=== PATIENT | female | born 1960 | race Caucasian/White ===

== ENCOUNTER → 2018-11-05 10:02 | Outpatient (CLI) | payer OTHER, BC, SELFPAY ==
[2018-11-05 10:42] LABS: Absolute Lymphocyte Count 2.24 X10^3/ul (0.83-4.51); Absolute Neutrophil Count 3.2 X10^3/uL (2.0-7.7); Basophil# 0.02 X10^3/uL; Basophil% 0.3 % (0-1); Eosinophil# 0.07 X10^3/uL; Eosinophils% 1.2 % (0-5); Hematocrit 41.4 % (37-47); Hemoglobin 13.8 g/dl (12.0-15.0); Lymphocyte # 2.24 X10^3/ul (4.0); Lymphocyte % 36.8 % (19-41); Mean Corp Hgb Conc 33.3 g/gl (32-36); Mean Corpuscular Hgb 32.4 pg (27.0-32.0); Mean Corpuscular Volume 97.2 fL (81-99); Mean Platelet Vol. 9.3 fl (6.2-12.0); Monocyte# 0.52 X10^3/uL; Monocyte% 8.6 % (0-10); Neutrophil # 3.22 X10^3/uL (2.7-7.7); Neutrophil % 52.9 % (47-70); POSITIVE COUNT NO; POSITIVE DIFFERENTIAL NO; POSITIVE MORPHOLOGY NO; Platelet Count 324 K/mm3 (150-450); RBC Distribution Width CV 12.7 % (11.6-14.6); RBC Distribution Width SD 44.4 fl (35.1-43.9); Red Blood Count 4.26 M/mm3 (4.2-5.4); White Blood Count 6.1 K/mm3 (4.4-11.0)
[2018-11-05 11:22] LABS: Albumin, Serum 4.2 g/dL (3.2-5.0); BUN 18 mg/dL (7-18); BUN/Creat Ratio 20.1 RATIO (10-20); EST Glomerular Filtration Rate 69 mL/min (>60); Est Glom Filt Rate - Afr Amer 84 mL/min (>60); Globulin 3.5 g/dL (2.2-4.2); Glucose 101 mg/dL (74-106); Protein, Total 7.7 g/dL (6.4-8.2)
[2018-11-05 11:23] LABS: ALB/GLOB Ratio 1.2 RATIO (0.9-2.4); AST(SGOT) 17 U/L (15-37); Alanine Aminotransfer ALT/SGPT 28 U/L (13-56); Alkaline Phosphatase 63 U/L (45-117); Anion Gap 8 (5-15); Calcium,Total 9.2 mg/dL (8.5-10.1); Chloride 105 mmol/L (98-107); Cholesterol 219 mg/dL (200); High Density Lipoprotein 44 mg/dL; Potassium 4.1 mmol/L (3.5-5.1); Sodium Level 136 mmol/L (136-145); Triglycerides 190 mg/dL; Very Low Density Lipoprotein 38 mg/dL (5-40)
--- OUTSIDE RECORDS SUMMARY | 2019-01-09 17:37 | XMS RPT_ITS ---
:1960 Author Organization OHIP Care Team Providers Name Role Phone JADA JOHNSON Attending Unavailable JADA JOHNSON Referring Unavailable JADA JOHNSON Primary Care Unavailable Scotia, Samantha March Admitting Unavailable Scotia, Samantha March Attending Unavailable Scotia, Samantha March Primary Care Unavailable Scotia, Samantha March Admitting Unavailable [place], Samantha March Attending Unavailable Scotia, Samantha March Primary Care Unavailable Carmen Salmeron Attending Unavailable [place], Samantha March Primary Care Unavailable Carmen Salmeron Admitting Unavailable [place], Samantha March Attending Unavailable Scotia, Samantha March Primary Care Unavailable Scotia, Asmantha March Admitting Unavailable [place], Samantha March Admitting Unavailable [place], Samantha March Attending Unavailable [place], Samantha March Primary Care Unavailable Scotia, Samantha March Primary Care Unavailable Nikhil Palacios Attending Unavailable Nikhil Palacios Admitting Unavailable Scotia, Samantha March Attending Unavailable Scotia, Samantha March Primary Care Unavailable PROBLEMS PROBLEMS No Problem Records FoundPROCEDURES PROCEDURES No Procedure Records FoundRESULTS RESULTS CBC W/DIFF, AUTOMATED Collected: 11/05/2018 Status: F Source: [place] 10:21 AM [facility] REPOSITORY TYPE CODE TESTS RESULT OUT OF RANGE REFERENCE UNITS LAB L100.1000 4.4-11.0 K/mm3 Normal WBC 6.1 LAB L100.1200 4.2-5.4 M/mm3 Normal RBC 4.26 LAB L100.1300 12.0-15.0 g/dl Normal HGB 13.8 LAB L100.1400 37-47 % Normal HCT 41.4 LAB L100.1500 81-99 fL Normal MCV 97.2 LAB L100.1600 27.0-32.0 pg High MCH 32.4 LAB L100.1700 32-36 g/gl Normal MCHC 33.3 LAB L100.1810 11.6-14.6 % Normal RDW CV 12.7 LAB L100.1820 35.1-43.9 fl High RDW SD 44.4 LAB L100.1900 150-450 K/mm3 Normal PLT 324 LAB L100.2000 6.2-12.0 fl Normal MPV 9.3 LAB L100.2100 47-70 % Normal NEUT% 52.9 LAB L100.2200 19-41 % Normal LY% 36.8 LAB L100.2300 0-10 % Normal MONO% 8.6 LAB L100.2400 0-5 % Normal EO% 1.2 LAB L100.2500 0-1 % Normal BASO% 0.3 LAB L100.2550 0.0-0.9 % Normal IM GRAN % 0.200 Result Comment: IG% - Immature Granulocytes (promyelocytes, myelocytes and metamyelocytes) > 1% indicates that a LEFT SHIFT is Present. LAB L100.2620 2.0-7.7 X10 3/uL Normal Absolute Neut 3.2 LAB L100.2720 0.83-4.51 X10 3/ul Normal Absolute Lymph 2.24 Performed By: #### L100.0100 #### [facility] [address] [place], [address] COMPREHENSIVE METABOLIC Collected: 11/05/2018 Status: F Source: [facility] 10:21 AM [facility] REPOSITORY TYPE CODE TESTS RESULT OUT OF RANGE REFERENCE UNITS LAB L501.0100 74-106 mg/dL Normal GLU 101 Result Comment: Fasting Glucose result from 100 to 125 mg/dL suggests IMPAIRED HOMEOSTASIS per A.D.A. criteria. Please note revised GLUCOSE reference range effective 2017. LAB L501.1000 7-18 mg/dL Normal BUN 18 LAB L501.1100 0.55-1.02 mg/dL Normal CREAT,SERUM 0.90 Result Comment: The validity of the calculated GFR AND GFRAA in patients over 70 years has not been determined. Clinical correlation is essential. LAB L501.1110 >60 mL/min Normal EST GFR 69 Result Comment: Non- GFR Calc LAB L501.1115 >60 mL/min Normal EST GFR - AA 84 Result Comment: GFR Calc LAB L501.1300 10-20 RATIO High BUN/CRE 20.1 LAB L501.1500 6.4-8.2 g/dL T Normal PROT 7.7 LAB L501.1800 3.2-5.0 g/dL Normal ALB 4.2 LAB L501.1950 2.2-4.2 g/dL Normal GLOB 3.5 LAB L501.2000 0.9-2.4 RATIO Normal A/G 1.2 LAB L501.2200 8.5-10.1 mg/dL CA Normal 9.2 LAB L501.4100 15-37 U/L Normal AST 17 LAB L501.4305 45-117 U/L Normal ALK P 63 LAB L501.4405 13-56 U/L Normal ALT 28 LAB L501.4600 0.20-1.00 mg/dL T Normal BILI 0.40 LAB L501.5300 136-145 mmol/L NA Normal 136 LAB L501.5600 3.5-5.1 mmol/L K Normal 4.1 LAB L501.5900 98-107 mmol/L CL Normal 105 LAB L501.6100 21.0-32.0 mmol/L Normal CO2 23.0 LAB L501.6200 5-15 Normal GAP 8 Performed By: #### L500.4050, L500.4100 #### [facility] [address] [place], [place], [address] LIPID PROFILE Collected: 11/05/2018 Status: F Source: [place] 10:21 AM [facility] REPOSITORY TYPE CODE TESTS RESULT OUT OF RANGE REFERENCE UNITS LAB L501.4900 200 mg/dL High CHOL 219 Result Comment: <200 mg/dL Desirable 200-240 mg/dL Borderline >240 mg/dL High Risk LAB L501.5000 mg/dL Normal TRIG 190 Result Comment: The drugs N-Acetylcysteine and Metamizole may falsely depress this assay. Serum Triglycerides Reference Interval Normal <150 mg/dL Borderline high 150 - 199 mg/dL High 200 - 499 mg/dL Very High > or = 500 mg/dL LAB L501.6400 mg/dL Normal HDL 44 Result Comment: The drugs N-Acetylcysteine and Metamizole may falsely depress this assay. Reference Range HDL <40 mg/dL Low HDL Cholesterol HDL >or= 60 mg/dL High HDL Cholesterol LAB L501.6500 0-130 mg/dL High LDL 137 LAB L501.6600 5-40 mg/dL Normal VLDL 38 Performed By: #### L500.4050, L500.4100 #### [facility] [address] [place], [address] CT CORONARY ARTERY Observed: 05/12/2018 Status: F Source: RELIGIOUS CALCIUM SCORE 3:00 PM [facility] REPOSITORY Exam Date/Time: 05/12/2018 15:16 EDT Reason for Exam: SCREENING FOR HEART DISEASE HIGH BLOOD PRESSURE HYPLIPIDEMIA;Screening Report STUDY: CT Coronary Artery Calcium Score; 05/12/2018 3:16 pm INDICATION: Screening. COMPARISON: None. ACCESSION NUMBER(S): [id number] ORDERING CLINICIAN: Samantha Adkins TECHNIQUE: Using prospective ECG gating, CT scan of the coronary arteries was performed without intravenous contrast. Coronary calcium scoring was performed according to the method of Agatston. FINDINGS: The score and distribution of calcium in the coronary arteries is as follows: LM 0 LAD 0 LCx 0 RCA 0 Total 0 The visualized mid/lower ascending thoracic aorta measures 3 cm in diameter. The heart is normal in size. No pericardial effusion is present. No gross evidence of mediastinal or hilar lymphadenopathy or masses is identified. However, there are few enlarged densely calcified subcarinal and right hilar lymph nodes seen, likely representing sequelae of remote granulomatous process. The visualized segments of the lungs are normally expanded. There are few adjacent calcified granulomas seen within lateral right middle lobe measuring up to 8 mm on axial image 38 of 60. The visualized subdiaphragmatic structures appear intact. IMPRESSION: 1. Coronary artery calcium score of 0*. 2. Sequelae of remote granulomatous process within mediastinum, right hilum and right middle lobe lung. *Coronary Artery Calcium Gated and Nongated Agatston score Score Risk 0 Very low Exam Date/Time: 05/12/2018 15:16 EDT Report 1-99 Mildly increased 100-299 Moderately increased >300 Moderate to severely increased Areli et al. JCCT 2016 (http://dx.doi.org/10.1016/j.jcct.2016.11.003) MULLIGAN 10-Year CHD Risk with Coronary Artery Calcification can be calcuate using link below [email or web address] Bella et al. JACC 2014 (http://dx.doi.org/10.1016/j.j acc.2015.08.035) FINAL REPORT Dictated: 05/12/2018 4:08 pm Aleksey Grijalva MD Signed (Electronic Signature): 05/12/2018 4:08 pm Signed by: Aleksey Grijalva MD Technologist: RIO SMITH Collected: 12/18/2017 Status: F Source: RELIGIOUS 8:21 [facility] REPOSITORY TYPE CODE TESTS RESULT OUT OF RANGE REFERENCE UNITS LAB 53360341(L 70-99 mg/dL OINC) High Glucose Lvl 107 LAB 29700229(L 8.4-10.2 mg/dL OINC) Calcium Normal Lvl 9.8 LAB 95558473(L 136-145 mEq/L OINC) Sodium Normal Lvl 139 LAB 60631992(L 3.5-5.1 mEq/L OINC) Normal Potassium Lvl 3.8 LAB 75467459(L 98-107 mEq/L OINC) Chloride Normal 104 LAB 08160315(L 24.0-30.0 mEq/L OINC) CO2 Normal 28.9 LAB 98653723(L 7-18 mg/dL OINC) High BUN 20 LAB 2478970(LO 0.6-1.3 mg/dL INC) Normal Creatinine 0.9 LAB 44099855(L 5.4-30.0 ratio OINC) Normal BUN/Creat Ratio 22.2 Performed By: #### [id number] #### [facility] [place] [address] EGFR Collected: 12/18/2017 Status: F Source: RELIGIOUS 8:21 [facility] REPOSITORY Order Comment: Order added by Discern Expert. TYPE CODE TESTS RESULT OUT OF RANGE REFERENCE UNITS LAB 05719745(LO mL/min/1.73 INC) m2 Normal eGFR >60 LAB 73491763(LO mL/min/1.73 INC) m2 Normal eGFR AA >60 Performed By: #### [id number] #### [facility] [place] [address] LIPID PROFILE Collected: 12/18/2017 Status: F Source: RELIGIOUS 8:21 AM [facility] REPOSITORY TYPE CODE TESTS RESULT OUT OF RANGE REFERENCE UNITS LAB 93379396(LO 50-200 mg/dL INC) Normal Chol 200 Result Comment: TOTAL CHOLEESTEROL: <200 NORMAL 200 - 239 BORDERLINE HIGH >240 HIGH LAB 29999906(LOINC) >=41 mg/dL Normal HDL 44 LAB 02780037(LOINC) 0-130 mg/dL High LDL 137 Result Comment: <100 OPTIMAL 100-129 NEAR / ABOVE OPTIMAL 130-159 BORDERLINE HIGH 160-189 HIGH >190 VERY HIGH CALC LDL NOT VALID WHEN TRIGLYCERIDE IS >400 MG/DL LAB 05641622(LOINC) 35-150 mg/dL Normal Trig 93 Result Comment: <150 NORMAL 150-199 BORDERLINE HIGH 200-499 HIGH >500 VERY HIGH LAB 30265237(LOINC) Normal VLDL 19 Performed By: #### [id number] #### [facility] [address] [place] [address] FERRITIN Collected: 12/18/2017 Status: F Source: RELIGIOUS 8:21 AM [facility] REPOSITORY TYPE CODE TESTS RESULT OUT OF RANGE REFERENCE UNITS LAB 33440405(L 11.0-306.8 ng/mL OINC) Normal Ferritin Lvl 28.2 Performed By: #### [id number] #### [facility] [address] [place] [address] HGBA1C Collected: 12/18/2017 Status: F Source: RELIGIOUS 8:21 AM [facility] REPOSITORY TYPE CODE TESTS RESULT OUT OF RANGE REFERENCE UNITS LAB 731170178( 4.0-6.3 % LOINC) Normal Hemoglobin A1c 5.7 Performed By: #### [id number] #### [facility] Chemistry Manual Subsection [address] [place] [address] ALLERGIES ALLERGIES DATE TYPE / CODE NAME / CODE REACTION SEVERITY SOURCE Drug/737193 erythromycin STOMACH Jew 003(SNOMED PROBLEMS [facility]) System Repository Drug/643276 Augmentin Vomiting Jew 003(SNOMED [facility]) System Repository Drug/592043 Novocain Both parents Jew 003(SNOMED allergic to [facility] CT) novacaine. Was System told not to Repository use this. ENCOUNTERS ENCOUNTERS ADMIT/DISCHARGE ACCOUNT NUMBER ADMITTING ENCOUNTER LOCATION SOURCE CLASS 11/05/2018 [id number] Ambulatory General acute hospital ding:LAB Repository 09/27/2018 [id number] [facility] ding:[place] Repository nt Medic 09/27/2018/09/27/[id number] ding:[place] Repository nt MedicRoom: Room 1 08/05/2018/08/05/20 [id number] [facility] 18 Nikhil Sellers g:QCareRoom: Regional Room 2 Health System Repository 05/12/2018/05/12/[id number] ding:SH.CT Health System Repository 05/12/[id number] Repository 05/03/2018/05/03/[id number] ding:[place] Repository nt MedicRoom: Room 2 03/25/2018/03/25/20 [id number] Carmen Salmeron Ambulatory [address] ding:[place] Repository nt MedicRoom: Room 2 12/18/2017/12/19/[id number] ding:SH.Lab Health System Repository PAYERS PAYERS ENCOUNTER GUARANTOR PAYER SUBSCRIBER SOURCE 11/05/2018 SHIRA SEARS182 RICH Insurance:MEDICAL RICHERTDOB: [address] [id number] [address]Bjv: (419) Number: Repository [phone] () [id number] Date:[id number], [place] [address]CA: 11/05/2018 Secondary JENNIFER L [place] Insurance:ANTHEMPolic RICHERTDOB: Community y Number: [id number] Hospital [id number] Repository Date:0754-24-12TQ [address] [place] [address]WH: 11/05/2018 Tertiary NOT GIVENUNK Arturo Insurance:SELF PAY [facility] Number: Effective Repository Date:2018-11-05 09/27/2018 SHIRA A Primary SHIRA Irving DavenportJew RICHERTDOB: Insurance:1500 RICHERTDOB: [facility] MEDICAL MUTUALPolicy [id number] System [facility] Number: Effective [facility] Repository [place], [place] Date:2018-[place] [address]Fay: [id number] [id number]: Name:[id number] O () [address] [place] [address] ()Tel: [phone]: [phone] 09/27/2018 Secondary JENNIFER L RICHERT Jew Insurance:1500 [facility] Number: [id number] Repository Date:[place] [id number] [id number]: Name:[id number] O [address] [place] [address] [place] ()Tel: [phone]: [phone] 09/27/2018 SHIRA A Primary SHIRA A Jew RICHERTDOB: Insurance:1500 RICHERTDOB: [facility] [id number] Number: Effective [facility] Repository [place], [place] Date:2018-05-03 [place] [address]Phz: [id number] [address]Vbw: Name:CD:[id number] O () [address] [place] [address] (HP)Tel: [phone]: [phone] 09/27/2018 Secondary JENNIFER L RICHERT Jew Insurance:1500 IIDOB: [facility] ANTHEMPolicy Number: [id number] [address] Repository Date:2018-05-03[place], [place] [id number] [id number]: Name:CD:[id number] O [address] ()Tel: [phone]: ([phone] 08/05/2018 SHIRA A Primary SHIRA A Jew RICHERTDOB: Insurance:1500 RICHERTDOB: [facility] MEDICAL MUTUALPolicy [id number] Number: Effective [address] Repository [address] [place] [address] Date:2018-08-05[place] [address]Thp: [id number] [id number]: Name:CD:[id number] O () [address] [place] [address] ()Tel: [phone]: [phone] 08/05/2018 Secondary JENNIFER L RICHERT Jew Insurance:1500 IIDOB: [facility] ANTHEMPolicy Number: [id number] Repository Date:2018-08-05[place], [place] [id number] [id number]: Name:CD:[id number] O [address] ()Tel: [phone]: [phone] 05/12/2018 SHIRA A Primary SHIRA A Jew RICHERTDOB: Insurance:Medical [facility] Number: [id number] Effective [facility] Repository [place], [place] Date:2018-05-03 - [place], [place] [address]Zjp: [id number] [id number]: Name:Medical [place] () [address], [place] ()Tel: [phone]: (WP) [phone] 05/12/2018 Secondary JENNIFER Johnson Insurance:ANTHEMPolic IIDOB: [facility] y Number: Effective [id number] System Date:2018-05-03 - [facility] Repository [id number] [place], [place] Name:[facility] [id number]: [id number], [place] [address]KR: [phone] (WP) 05/12/2018 [facility] RICHERTDOB: Insurance:Medical RICHERTDOB: [facility] [id number] Number: [facility] [place], [place] [id number] [address] [place] [address] [id number]: Date:Plan Name:Health [id number]: () () 05/12/2018 Secondary JENNIFER RICHERTDOB: University Insurance:AnthemPolic [id number] Hospitals y Number: [facility] Repository [id number] [address] [place] [address] Date:Plan Name:Health [id number] 05/12/2018 Tertiary [facility] Insurance:Medical RICHERTDOB: [facility] [id number] Repository Number: [facility] [id number] [address] [place] [address], [place] Date:Plan Name:Health [id number]: () 05/03/2018 SHIRA A Primary SHIRA Johnson RICHERTDOB: Insurance:1500 RICHERTDOB: [facility] MEDICAL MUTUALPolicy [id number] System [facility] Number: Effective [address] Repository [place], [place] Date:2017-11-02[place], [place] [address]Jmi: [id number] [id number]: Name:CD:[id number] O () [address] [place] [address] ()Tel: [phone]: [phone] 05/03/2018 Secondary JENNIFER Johnson Insurance:1500 IIDOB: [facility] ANTHEMPolicy Number: [id number] System Effective [facility] Repository Date:2017-[place]-02[place], [place] [id number] [id number]: Name:[id number] O [address] [place] [address] ()Tel: [phone]: [phone] 03/25/2018 SHIRA A Primary SHIRA Johnson RICHERTDOB: Insurance:1500 RICHERTDOB: [facility] MEDICAL MUTUALPolicy [id number] System [facility] Number: Effective [facility] Repository [place], [place] Date:2018-03-25[place], [place] [address]Lgz: [id number] [address]Cxv: Name:CD:[id number] O () [address] [place] [address] ()Tel: [phone]: [phone] 12/18/2017 SHIRA A Primary SHIRA Johnson RICHERTDOB: Insurance:Medical RICHERTDOB: [facility] MutualPolicy Number: [id number] System [facility] Effective [facility] Repository [address] [place] [address] Date:2017-12-18 [place] [address]Kdl: [id number] [phone]: Name:Medical MutualPO () [address], [place] ()Tel: [phone]: [phone] 12/18/2017 Secondary JENNIFER SEARS Jew [facility] IID[facility]: [facility] y Number: Effective [id number] System Date:2017-12-18 - [facility] Repository [id number] [address] [place] [address] Name:Blue CrossPO [id number]: [id number], [place] [address]WG: [phone] (WP)
== END ==
PROVIDERS: Family Provider Family Medicine; PCP Family Medicine; Referring Provider Family Medicine; Visit Provider Family Medicine
DX: I10 Essential (primary) hypertension (principal); E78.2 Mixed hyperlipidemia; R53.83 Other fatigue
CPT/HCPCS: 36415; 80053; 80061; 85025

== ENCOUNTER → 2019-09-09 12:47 | Outpatient (CLI) | payer OTHER, BC, SELFPAY ==
[2019-09-09 14:06] LABS: ALB/GLOB Ratio 1.3 RATIO (0.9-2.4); AST(SGOT) 16 U/L (15-37); Alanine Aminotransfer ALT/SGPT 42 U/L (13-56); Albumin, Serum 4.4 g/dL (3.2-5.0); Alkaline Phosphatase 64 U/L (45-117); BUN 19 mg/dL (7-18); BUN/Creat Ratio 17.9 RATIO (10-20); Calcium,Total 9.1 mg/dL (8.5-10.1); Creatinine, Serum 1.06 mg/dL (0.55-1.02); EST Glomerular Filtration Rate 57 mL/min (>60); Est Glom Filt Rate - Afr Amer 69 mL/min (>60); Globulin 3.5 g/dL (2.2-4.2); Glucose 109 mg/dL (74-106); Protein, Total 7.9 g/dL (6.4-8.2)
[2019-09-09 14:07] LABS: Anion Gap 9 (5-15); Chloride 103 mmol/L (98-107); Cholesterol 256 mg/dL (200); High Density Lipoprotein 44 mg/dL; Potassium 4.1 mmol/L (3.5-5.1); Sodium Level 137 mmol/L (136-145); Thyroid Stim Hormone (TSH) 0.58 uIU/mL (0.358-3.74); Triglycerides 324 mg/dL; Very Low Density Lipoprotein 65 mg/dL (5-40)
== END ==
PROVIDERS: Family Provider Family Medicine; PCP Family Medicine; Referring Provider Nurse Practitioner Family; Visit Provider Nurse Practitioner Family
DX: I10 Essential (primary) hypertension (principal); E78.2 Mixed hyperlipidemia; R53.83 Other fatigue
CPT/HCPCS: 36415; 80053; 80061; 84443

== ENCOUNTER → 2021-03-21 11:27 | Outpatient (CLI) | payer OTHER, SELFPAY ==
[2021-03-21 12:05] LABS: Hemoglobin A1c 6.3 % (3.8-5.6)
[2021-03-21 13:00] LABS: ALB/GLOB Ratio 1.2 RATIO (0.9-2.4); AST(SGOT) 19 U/L (15-37); Alanine Aminotransfer ALT/SGPT 26 U/L (13-56); Albumin, Serum 4.3 g/dL (3.2-5.0); Alkaline Phosphatase 82 U/L (45-117); Anion Gap 8 (5-15); BUN 16 mg/dL (7-18); BUN/Creat Ratio 15.4 RATIO (10-20); Calcium,Total 9.6 mg/dL (8.5-10.1); Chloride 103 mmol/L (98-107); Cholesterol 225 mg/dL (200); Creatinine, Serum 1.04 mg/dL (0.55-1.02); EST Glomerular Filtration Rate 58 mL/min (>60); Est Glom Filt Rate - Afr Amer 70 mL/min (>60); Globulin 3.6 g/dL (2.2-4.2); Glucose 110 mg/dL (74-106); High Density Lipoprotein 46 mg/dL; Potassium 4.2 mmol/L (3.5-5.1); Protein, Total 7.9 g/dL (6.4-8.2); Sodium Level 137 mmol/L (136-145); Thyroid Stim Hormone (TSH) 1.25 uIU/mL (0.358-3.74); Triglycerides 144 mg/dL; Very Low Density Lipoprotein 29 mg/dL (5-40)
== END ==
PROVIDERS: PCP Nurse Practitioner Family; Referring Provider Nurse Practitioner Family; Visit Provider Nurse Practitioner Family
DX: I10 Essential (primary) hypertension (principal); E78.5 Hyperlipidemia, unspecified; R73.09 Other abnormal glucose; R79.89 Other specified abnormal findings of blood chemistry
CPT/HCPCS: 36415; 80053; 80061; 83036; 84443

== ENCOUNTER 2021-11-25 11:32 | Outpatient (CLI) | payer BC, SELFPAY ==
[2021-11-25 14:03] LABS: Hemoglobin A1c 6.4 % (3.8-5.6)
[2021-11-25 14:29] LABS: ALB/GLOB Ratio 1.1 RATIO (0.9-2.4); AST(SGOT) 22 U/L (15-37); Alanine Aminotransfer ALT/SGPT 34 U/L (13-56); Albumin, Serum 4.2 g/dL (3.2-5.0); Alkaline Phosphatase 70 U/L (45-117); Anion Gap 6 (5-15); BUN 19 mg/dL (7-18); BUN/Creat Ratio 17.9 RATIO (10-20); Calcium,Total 9.4 mg/dL (8.5-10.1); Chloride 106 mmol/L (98-107); Cholesterol 239 mg/dL (200); Creatinine, Serum 1.06 mg/dL (0.55-1.02); EST Glomerular Filtration Rate 56 mL/min (>60); Est Glom Filt Rate - Afr Amer 68 mL/min (>60); Globulin 3.7 g/dL (2.2-4.2); Glucose 112 mg/dL (74-106); High Density Lipoprotein 36 mg/dL; Potassium 4.6 mmol/L (3.5-5.1); Protein, Total 7.9 g/dL (6.4-8.2); Sodium Level 136 mmol/L (136-145); Triglycerides 254 mg/dL; Very Low Density Lipoprotein 51 mg/dL (5-40)
== END 2021-11-25 23:59 | disposition home or self-care (01) ==
LOC: LAB 11:34
PROVIDERS: PCP Nurse Practitioner Family; Referring Provider Nurse Practitioner Family; Visit Provider Nurse Practitioner Family
DX: E78.5 Hyperlipidemia, unspecified (principal); R73.03 Prediabetes
CPT/HCPCS: 36415; 80053; 80061; 83036

== ENCOUNTER → 2022-06-12 | Outpatient (CLI) | payer BC, SELFPAY ==
[2022-06-12 10:03] LABS: Absolute Lymphocyte Count 2.87 X10^3/uL (0.83-4.51); Absolute Neutrophil Count 4.4 X10^3/uL (2.0-7.7); Basophil# 0.05 X10^3/uL; Basophil% 0.6 % (0-1); Eosinophil# 0.06 X10^3/uL; Eosinophils% 0.7 % (0-5); Hematocrit 40.6 % (37-47); Hemoglobin 13.8 g/dL (12.0-15.0); Lymphocyte # 2.87 X10^3/ul (0.83-4.51); Lymphocyte % 35.5 % (19-41); Mean Corpuscular Hgb 32.5 pg (27.0-32.0); Mean Corpuscular Volume 95.8 fL (81-99); Mean Platelet Vol. 9.2 fl (6.2-12.0); Monocyte# 0.69 X10^3/uL; Monocyte% 8.5 % (0-10); NRBC Flagged by Analyzer 0 % (0-5); Neutrophil # 4.38 X10^3/uL (2.7-7.7); Neutrophil % 54.3 % (47-70); Platelet Count 352 K/mm3 (150-450); RBC Distribution Width SD 46.3 fl (35.1-43.9); Red Blood Count 4.24 M/mm3 (4.2-5.4); White Blood Count 8.1 K/mm3 (4.4-11.0)
[2022-06-12 10:34] LABS: ALB/GLOB Ratio 1.1 RATIO (0.9-2.4); AST(SGOT) 18 U/L (15-37); Alanine Aminotransfer ALT/SGPT 36 U/L (13-56); Albumin, Serum 3.9 g/dL (3.2-5.0); Alkaline Phosphatase 62 U/L (45-117); Anion Gap 6 (5-15); BUN 22 mg/dL (7-18); BUN/Creat Ratio 22.2 RATIO (10-20); Calcium,Total 9.3 mg/dL (8.5-10.1); Chloride 105 mmol/L (98-107); Cholesterol 173 mg/dL (200); Creatinine, Serum 0.99 mg/dL (0.55-1.02); EST Glomerular Filtration Rate 61 mL/min (>60); Est Glom Filt Rate - Afr Amer 73 mL/min (>60); Globulin 3.4 g/dL (2.2-4.2); Glucose 112 mg/dL (74-106); High Density Lipoprotein 48 mg/dL; Potassium 4.2 mmol/L (3.5-5.1); Protein, Total 7.3 g/dL (6.4-8.2); Sodium Level 137 mmol/L (136-145); Triglycerides 134 mg/dL; Very Low Density Lipoprotein 27 mg/dL (5-40)
[2022-06-12 10:37] LABS: Hemoglobin A1c 6.3 % (3.8-5.6)
== END | disposition home or self-care (01) ==
PROVIDERS: Referring Provider Nurse Practitioner Family; Visit Provider Nurse Practitioner Family
DX: I10 Essential (primary) hypertension (principal); E78.5 Hyperlipidemia, unspecified; R73.03 Prediabetes
CPT/HCPCS: 36415; 80053; 80061; 83036; 85025

== ENCOUNTER → 2023-01-01 | Outpatient (CLI) | payer BC, SELFPAY ==
[2023-01-01 10:37] LABS: Absolute Lymphocyte Count 2.35 X10^3/uL (0.83-4.51); Absolute Neutrophil Count 3.5 X10^3/uL (2.0-7.7); Basophil# 0.05 X10^3/uL; Basophil% 0.7 % (0-1); Hematocrit 41.3 % (37-47); Hemoglobin 13.7 g/dL (12.0-15.0); Lymphocyte # 2.35 X10^3/ul (0.83-4.51); Lymphocyte % 35.2 % (19-41); Mean Corp Hgb Conc 33.2 g/dL (32-36); Mean Corpuscular Volume 96.5 fL (81-99); Mean Platelet Vol. 9.5 fl (6.2-12.0); Monocyte# 0.52 X10^3/uL; Monocyte% 7.8 % (0-10); NRBC Flagged by Analyzer 0 % (0-5); Neutrophil # 3.54 X10^3/uL (2.7-7.7); Platelet Count 350 K/mm3 (150-450); RBC Distribution Width CV 12.9 % (11.6-14.6); RBC Distribution Width SD 46.2 fl (35.1-43.9); Red Blood Count 4.28 M/mm3 (4.2-5.4); White Blood Count 6.7 K/mm3 (4.4-11.0)
[2023-01-01 11:04] LABS: ALB/GLOB Ratio 1.2 RATIO (0.9-2.4); AST(SGOT) 16 U/L (15-37); Alanine Aminotransfer ALT/SGPT 31 U/L (13-56); Albumin, Serum 4.1 g/dL (3.2-5.0); Alkaline Phosphatase 65 U/L (45-117); Anion Gap 7 (5-15); BUN 14 mg/dL (7-18); BUN/Creat Ratio 14.2 RATIO (10-20); Calcium,Total 9.4 mg/dL (8.5-10.1); Chloride 107 mmol/L (98-107); Cholesterol 138 mg/dL (200); Creatinine, Serum 0.99 mg/dL (0.55-1.02); EST Glomerular Filtration Rate 61 mL/min (>60); Est Glom Filt Rate - Afr Amer 74 mL/min (>60); Ferritin 29 ng/mL (8-252); Globulin 3.4 g/dL (2.2-4.2); Glucose 124 mg/dL (74-106); High Density Lipoprotein 40 mg/dL; Iron 115 ug/dL (50-170); Iron Binding Capacity,Total 362 ug/dL (250-450); PERCENT IRON SATURATION 31.8 % (15.0-55.0); Potassium 3.9 mmol/L (3.5-5.1); Protein, Total 7.5 g/dL (6.4-8.2); Sodium Level 140 mmol/L (136-145); Triglycerides 138 mg/dL; Very Low Density Lipoprotein 28 mg/dL (5-40)
[2023-01-01 11:06] LABS: Vitamin B12 323 pg/mL (211-911)
[2023-01-01 11:11] LABS: Hemoglobin A1c 6.2 % (3.8-5.6)
== END | disposition home or self-care (01) ==
LOC: LAB 10:01
PROVIDERS: PCP Family Medicine; Referring Provider Nurse Practitioner Family; Visit Provider Nurse Practitioner Family
DX: I10 Essential (primary) hypertension (principal); E78.5 Hyperlipidemia, unspecified; R73.03 Prediabetes
CPT/HCPCS: 36415; 80053; 80061; 82607; 82728; 83036; 83540; 83550; 85025

== ENCOUNTER → 2024-04-14 | Outpatient (CLI) | payer BC, SELFPAY ==
[2024-04-14 09:52] LABS: Absolute Lymphocyte Count 2.47 X10^3/uL (0.83-4.51); Absolute Neutrophil Count 4.3 X10^3/uL (2.0-7.7); Basophil# 0.04 X10^3/uL; Basophil% 0.5 % (0-1); Eosinophil# 0.14 X10^3/uL; Eosinophils% 1.9 % (0-5); Hematocrit 39.3 % (37-47); Hemoglobin 12.9 g/dL (12.0-15.0); Lymphocyte # 2.47 X10^3/ul (0.83-4.51); Lymphocyte % 32.9 % (19-41); Mean Corp Hgb Conc 32.8 g/dL (32-36); Mean Corpuscular Hgb 31.2 pg (27.0-32.0); Mean Corpuscular Volume 95.2 fL (81-99); Mean Platelet Vol. 9.2 fl (6.2-12.0); Monocyte# 0.58 X10^3/uL; Monocyte% 7.7 % (0-10); NRBC Flagged by Analyzer 0 % (0-5); Neutrophil # 4.26 X10^3/uL (2.7-7.7); Neutrophil % 56.7 % (47-70); Platelet Count 326 K/mm3 (150-450); RBC Distribution Width CV 12.9 % (11.6-14.6); RBC Distribution Width SD 44.2 fl (35.1-43.9); Red Blood Count 4.13 M/mm3 (4.2-5.4); White Blood Count 7.5 K/mm3 (4.4-11.0)
[2024-04-14 10:33] LABS: Vitamin B12 249 pg/mL (211-911); Vitamin D,25 Hydroxy 26.3 ng/mL
[2024-04-14 10:38] LABS: ALB/GLOB Ratio 1.2 RATIO (0.9-2.4); AST(SGOT) 17 U/L (15-37); Alanine Aminotransfer ALT/SGPT 35 U/L (13-56); Albumin, Serum 3.9 g/dL (3.2-5.0); Alkaline Phosphatase 81 U/L (45-117); Anion Gap 6 (5-15); BUN 17 mg/dL (7-18); Calcium,Total 9.4 mg/dL (8.5-10.1); Chloride 108 mmol/L (98-107); Cholesterol 137 mg/dL (200); EST Glomerular Filtration Rate 60 mL/min (>60); Est Glom Filt Rate - Afr Amer 72 mL/min (>60); Globulin 3.3 g/dL (2.2-4.2); Glucose 122 mg/dL (74-106); High Density Lipoprotein 42 mg/dL; Potassium 4.5 mmol/L (3.5-5.1); Protein, Total 7.2 g/dL (6.4-8.2); Sodium Level 140 mmol/L (136-145); Triglycerides 105 mg/dL; Very Low Density Lipoprotein 21 mg/dL (5-40)
[2024-04-14 10:52] LABS: Hemoglobin A1c 6.4 % (3.8-5.6)
== END | disposition home or self-care (01) ==
LOC: LAB 09:34
PROVIDERS: PCP Family Medicine; Visit Provider Nurse Practitioner Family
DX: Z00.00 Encounter for general adult medical examination without abnormal findings (principal); Z13.21 Encounter for screening for nutritional disorder; Z13.220 Encounter for screening for lipoid disorders; Z13.1 Encounter for screening for diabetes mellitus
CPT/HCPCS: 36415; 80053; 80061; 82306; 82607; 83036; 85025

== ENCOUNTER → 2024-12-05 | Outpatient (CLI) | payer BC, SELFPAY ==
--- NOTE | 2024-12-05 11:54 | BI_ITS ---
PROCEDURE: SCRN MAMM (CAD)W/AYLIN BILAT REASON FOR EXAM: F, Age 64 y/o, no family history. Routine annual mammogram. TECHNIQUE: Bilateral screening digital breast tomosynthesis with 2D and 3D images. Computer aided detection. COMPARISON: Prior exam(s) dating back to comparison is made with prior study dated September 20, 2021.. FINDINGS: There are scattered areas of fibroglandular density. Stable examination. No suspicious masses, areas of developing architectural distortion, or suspicious calcifications. BI/SCRN MAMM (CAD)W/AYLIN BILAT IMPRESSION: BI-RADS 1: NEGATIVE. RECOMMEND ANNUAL MAMMOGRAPHIC SCREENING. Follow-up code: Routine Follow-up The patient will be notified of the results by letter. Reading Location: [place] [address]
== END | disposition home or self-care (01) ==
LOC: OPBI 11:53
PROVIDERS: PCP Family Medicine; Referring Provider Nurse Practitioner Family; Visit Provider Nurse Practitioner Family
DX: Z12.31 Encounter for screening mammogram for malignant neoplasm of breast (principal)
CPT/HCPCS: 77063; 77067

== ENCOUNTER → 2025-01-02 | Outpatient (CLI) | payer BC, SELFPAY ==
[2025-01-02 11:18] LABS: Absolute Lymphocyte Count 2.21 X10^3/uL (0.83-4.51); Absolute Neutrophil Count 4.4 X10^3/uL (2.0-7.7); Basophil# 0.04 X10^3/uL; Basophil% 0.5 % (0-1); Eosinophil# 0.11 X10^3/uL; Eosinophils% 1.5 % (0-5); Hematocrit 38.7 % (37-47); Hemoglobin 12.6 g/dL (12.0-15.0); Lymphocyte # 2.21 X10^3/ul (0.83-4.51); Lymphocyte % 29.5 % (19-41); Mean Corp Hgb Conc 32.6 g/dL (32-36); Mean Corpuscular Hgb 30.7 pg (27.0-32.0); Mean Corpuscular Volume 94.2 fL (81-99); Mean Platelet Vol. 9.1 fl (6.2-12.0); Monocyte# 0.69 X10^3/uL; Monocyte% 9.2 % (0-10); NRBC Flagged by Analyzer 0 % (0-5); Neutrophil % 58.9 % (47-70); Platelet Count 415 K/mm3 (150-450); RBC Distribution Width SD 45.1 fl (35.1-43.9); Red Blood Count 4.11 M/mm3 (4.2-5.4); White Blood Count 7.5 K/mm3 (4.4-11.0)
[2025-01-02 12:09] LABS: ALB/GLOB Ratio 1.4 RATIO (0.9-2.4); AST(SGOT) 18 U/L (<=31); Alanine Aminotransfer ALT/SGPT 19 U/L (<=34); Albumin, Serum 4.4 g/dL (3.4-4.8); Alkaline Phosphatase 88 U/L (35-104); Anion Gap 11 (5-15); BUN 14 mg/dL (4-19); BUN/Creat Ratio 15.2 RATIO (10-20); Calcium,Total 9.9 mg/dL (7.6-11.0); Carbon Dioxide 23.4 mmol/L (21.0-32.0); Chloride 104 mmol/L (98-108); Creatinine, Serum 0.93 mg/dL (0.70-1.20); EST Glomerular Filtration Rate 69 (>60); Globulin 3.1 g/dL (2.2-4.2); Glucose 121 mg/dL (70-99); Potassium 4.3 mmol/L (3.3-5.1); Protein, Total 7.5 g/dL (5.9-8.4); Sodium Level 138 mmol/L (133-145); Total Bilirubin 0.42 mg/dL (0.00-1.30); Vitamin D,25 Hydroxy 37.5 ng/mL (30-100)
[2025-01-02 12:56] LABS: Cholesterol 198 mg/dL (<=200); High Density Lipoprotein 36 mg/dL; Low Density Lipoprotein Calc. 128 mg/dL; Triglycerides 169 mg/dL; Very Low Density Lipoprotein 34 mg/dL (5-40); cholesterol:hdl ratio screen 5.48
[2025-01-02 13:40] LABS: Hemoglobin A1c 6.7 % (<=5.6)
== END | disposition home or self-care (01) ==
LOC: LAB 10:57
PROVIDERS: PCP Family Medicine; Referring Provider Nurse Practitioner Family; Visit Provider Nurse Practitioner Family
DX: I10 Essential (primary) hypertension (principal); R79.89 Other specified abnormal findings of blood chemistry; E55.9 Vitamin D deficiency, unspecified; E78.2 Mixed hyperlipidemia; R73.03 Prediabetes
CPT/HCPCS: 36415; 80053; 80061; 82306; 83036; 84439; 84443; 85025

== ENCOUNTER → 2025-04-20 | Outpatient (CLI) | payer BC, SELFPAY | END | disposition home or self-care (01) | LOC: LAB 11:05 | PROVIDERS: PCP Family Medicine; Referring Provider Nurse Practitioner Family; Visit Provider Nurse Practitioner Family | DX: R73.03 Prediabetes (principal) | CPT/HCPCS: 36415; 83036 ==

== ENCOUNTER 2025-08-28 11:57 | Outpatient (CLI) | payer BC, SELFPAY ==
[2025-08-28 12:43] LABS: Hematocrit 40.6 % (37-47); Hemoglobin 13.5 g/dL (12.0-15.0); Immature Granulocytes Count 0.020 X10^3/uL (0.0-0.0); Mean Corp Hgb Conc 33.3 g/dL (32-36); Mean Corpuscular Volume 91.6 fL (81-99); Mean Platelet Vol. 8.9 fl (6.2-12.0); NRBC Flagged by Analyzer 0 % (0-5); Platelet Count 426 K/mm3 (150-450); RBC Distribution Width CV 13.3 % (11.6-14.6); RBC Distribution Width SD 45.3 fl (35.1-43.9); Red Blood Count 4.43 M/mm3 (4.2-5.4); White Blood Count 8.1 K/mm3 (4.4-11.0)
[2025-08-28 12:59] LABS: Creatinine, Urine (random) 143.00 mg/dL (28.00-217.00); Microalbumin,Random Urine < 12.0 mg/L (<20 mg/L)
[2025-08-28 13:26] LABS: AST(SGOT) 18 U/L (<=31); Alanine Aminotransfer ALT/SGPT 19 U/L (<=34); Albumin, Serum 4.4 g/dL (3.4-4.8); Alkaline Phosphatase 88 U/L (35-104); Anion Gap 10 (5-15); BUN 19 mg/dL (4-19); BUN/Creat Ratio 19.3 RATIO (10-20); Calcium,Total 9.7 mg/dL (7.6-11.0); Carbon Dioxide 24.5 mmol/L (21.0-32.0); Chloride 102 mmol/L (98-108); Globulin 3.0 g/dL (2.2-4.2); Glucose 99 mg/dL (70-99); Potassium 5.0 mmol/L (3.3-5.1)
[2025-08-28 14:29] LABS: Cholesterol 165 mg/dL (<=200); Low Density Lipoprotein Calc. 106 mg/dL; Triglycerides 119 mg/dL; Very Low Density Lipoprotein 24 mg/dL (5-40); Vitamin B12 324 pg/mL (180-914); cholesterol:hdl ratio screen 4.39
== END 2025-08-28 23:59 | disposition home or self-care (01) ==
LOC: LAB 11:58
PROVIDERS: PCP Family Medicine; Referring Provider Family Medicine; Visit Provider Family Medicine
DX: I10 Essential (primary) hypertension (principal); E78.2 Mixed hyperlipidemia; R79.89 Other specified abnormal findings of blood chemistry; E11.9 Type 2 diabetes mellitus without complications
CPT/HCPCS: 36415; 80053; 80061; 82043; 82570; 82607; 83036; 84439; 84443; 85025